=== PATIENT | male | born 1995 | race Two or more races ===

== ENCOUNTER 2018-06-17 11:19 | Emergency (ER) | payer SELFPAY ==
[~2018-06-17] VITALS: Ht 167.6 cm; Wt 55.0 kg
[2018-06-17] MEDS ORDERED: TETANUS, DIPHTHERIA, PERTUSSIS VAC/PF 0.5ML (>7YR OLD) IM ONE (13:30)
[2018-06-17] MEDS ORDERED: IBUPROFEN 800MG TABLET PO ONE (13:30)
[2018-06-17 14:29] VITALS: BP 106/61
== END 2018-06-17 14:32 | disposition home or self-care (01) ==
LOC: ER 12:07
DX: S02.2XXB Fracture of nasal bones, initial encounter for open fracture (principal); Y04.0XXA Assault by unarmed brawl or fight, initial encounter; Y93.89 Activity, other specified; Y92.89 Other specified places as the place of occurrence of the external cause; R03.0 Elevated blood-pressure reading, without diagnosis of hypertension; F12.90 Cannabis use, unspecified, uncomplicated; Z23 Encounter for immunization
CPT/HCPCS: 12011; 70160; 90471; 90715; 99284; X7700